=== PATIENT | female | born 1970 | race Caucasian/White ===

== ENCOUNTER 2022-12-31 19:33 | Emergency (ER) | payer OTHER, MEDICAID, SELFPAY ==
[2022-12-31 19:37] VITALS: BP 120/79; PULSE 94; RESP 16; TEMP 36.9; O2SAT 95
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
--- NOTE | 2022-12-31 20:00 | DI.RAD_ITS ---
Exam(s) XR TOE LT GREAT EXAM: XR TOE LT GREAT CLINICAL HISTORY: pain post injury 12/22. TECHNIQUE: 2D digital imaging was performed. Three views. COMPARISON: No exams were available for comparison FINDINGS: BONES: Nondisplaced fracture noted at the medial corner the distal phalanx of the great toe. It inv olves a small portion of the articular surface which is not significantly . No additional f ractures. No bony destructive lesion is seen. JOINTS: No dislocation present. SOFT TISSUE: Normal. IMPRESSION: Fracture at the base of the distal phalanx of the great toe. DATA REPOSITORY: RADIATION DOSE DELIVERED:
[2022-12-31] MEDS: Acetaminophen 325 MG TAB 650 MG PO (20:32)
--- NOTE | 2022-12-31 21:29 | DI.VRAD_ITS ---
PROCEDURE INFORMATION: Exam: XR Left Toe(s) Exam date and time: 12/31/2022 8:54 PM Age: 52 years old Clinical indication: Injury or trauma; Other: Toe caught in dog leash; Blunt trauma; Toes; Left; Injury date: 12/22/22; Injury details: Pain S/P injury great toe TECHNIQUE: Imaging protocol: Radiologic exam of the left toes. Views: Minimum 2 views. COMPARISON: No relevant prior studies available. FINDINGS: Bones/joints: There is a basal corner fracture of the left great toe distal phalanx. This is a fracture of the lateral basal corner. The fragment measuring 3 x 2 mm is distracted 1 mm. Soft tissues: Soft tissue swelling over the lateral foot. No gas or foreign body. IMPRESSION: 1. Fractured left great toe distal phalanx medial base. A small corner fragment of 3 x 2 mm is distracted 1 mm. 2. Soft tissue swelling. No gas or foreign body. Dictated and Authenticated by: Adalid Hutson MD. Ordering:REY Apodaca MD
--- NOTE | 2022-12-31 22:01 | NUR.NOTE ---
Referral faxed to [facility] Podiatry for follow up of fractured great toe week of 01/01/23.Nursing Note:
[2022-12-31 22:18] VITALS: BP 124/78; PULSE 90; RESP 16; O2SAT 96
--- NOTE | 2023-01-01 13:39 | NUR.NOTE ---
Accessed pt chart to call her and let her know that her prescription was here for pickle sorter. She has lost her keys, I did not find any in the ED and [employer] did not have any in their possession. Nursing Note:
== END 2022-12-31 21:58 | disposition home or self-care (01) ==
PROVIDERS: Emergency Provider Emergency Medicine
DX: S92.402A Displaced unspecified fracture of left great toe, initial encounter for closed fracture (principal); X58.XXXA Exposure to other specified factors, initial encounter
CPT/HCPCS: 99283; 73660; 99284

== ENCOUNTER 2023-01-05 11:56 | Emergency (ER) | payer OTHER, MEDICAID, SELFPAY ==
[2023-01-05 12:10] VITALS: BP 102/65; PULSE 79; RESP 16; TEMP 37.3; O2SAT 96
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
[2023-01-05 13:51] LABS: Bilirubin Negative (Negative); Blood Negative (Negative); Clarity Sl Cloudy (Clear); Glucose Negative (Negative); Ketones Negative (Negative); Leukocyte Esterase Trace (Negative); Nitrite Positive (Negative); Specific Gravity 1.015 (1.005-1.025); Urobilinogen 0.2 mg/dL (Up to 0.2); pH 6.5 (5-8)
[2023-01-05 13:57] LABS: Bacteria Many HPF (Negative); C & S Indicated? Yes; Casts Negative LPF (Negative); Crystals Negative HPF (Negative); Epithelial Cells Negative HPF (Negative); Mucus Negative (Negative); RBC 0-2 HPF (0-2)
[2023-01-05 14:44] LABS: Abs Immature Grans 0.02 10^3/uL (0.0-0.06); Absolute Basophil Count 0.02 10^3/uL (0.0-0.2); Absolute Eosinophil Count 0.06 10^3/uL (0.0-0.7); Absolute Lymphocyte Count 2.22 10^3/uL (1.2-3.4); Absolute Monocyte Count 0.23 10^3/uL (0.1-0.8); Absolute Neutrophil Count 4.23 10^3/uL (1.2-6.7); Basophils % 0.3; Eosinophils % 0.9; HCT 43.8 % (36.0-46.0); HGB 14.6 g/dL (11.2-15.7); Immature Grans % 0.3; Lymphocytes % 32.7; MCHC 33.3 % (32.0-36.0); MCV 84 fL (80-95); MPV 9.3 fL (8.0-11.0); Monocytes % 3.4; Neutrophils % 62.4; Platelet Count 222 10^3/uL (130-400); RBC 5.22 10^6/uL (3.93-5.22); RDW 14.6 % (11.7-14.6); WBC 6.78 10^3/uL (4.4-10.8)
[2023-01-05] MEDS: Doxycycline Hyclate 100 MG CAP PO (14:56)
[2023-01-05] MEDS: cefTRIAXone 1 GM VIAL 0.5 GM IM (14:56)
[2023-01-05 14:58] LABS: ALT 53 U/L (14-59); AST 58 U/L (15-37); Albumin 3.7 g/dL (3.4-5.0); Alkaline Phosphatase 144 U/L (46-116); Bilirubin, Direct 0.2 mg/dL (0.0-0.2); Bilirubin, Total 0.6 mg/dL (0.2-1.0); Total Protein 7.9 g/dL (6.4-8.2)
[2023-01-06 15:39] LABS: Chlamydia Result Negative (Negative); GC Result Negative (Negative)
[2023-01-08 10:00] LABS: Hepatitis B Surface Ag Negative (Negative)
[2023-01-08 10:37] LABS: HIV-1/2 Ag & Ab Screen Negative (Negative)
== END 2023-01-05 15:14 | disposition home or self-care (01) ==
PROVIDERS: Emergency Provider Emergency Medicine
DX: T74.21XA Adult sexual abuse, confirmed, initial encounter (principal); N89.8 Other specified noninflammatory disorders of vagina; N39.0 Urinary tract infection, site not specified; Y07.410 Brother, perpetrator of maltreatment and neglect
CPT/HCPCS: 80076; 86706; 86803; 87077; 87340; 87389; 87491; 87591; 96372; 99283; 81003; 81015; 85025; 86705; 87086; 87186; 87480; 87510; 87660; J0696

== ENCOUNTER 2023-01-18 15:41 | Outpatient (REF) | payer OTHER, MEDICAID, SELFPAY ==
[2023-01-18 15:50] LABS: TSH (W/Ref FT4) 0.07 uIU/mL (0.36-3.74)
[2023-01-18 16:33] LABS: FREE T4 1.18 ng/dL (0.76-1.46)
[2023-01-18 16:53] LABS: Bacteria Rare HPF (Negative); C & S Indicated? C&S Done As Ordered; Casts Negative LPF (Negative); Crystals Negative HPF (Negative); Epithelial Cells Few HPF (Negative); Mucus Negative (Negative); RBC 0-2 HPF (0-2)
== END 2023-01-18 15:42 | disposition home or self-care (01) ==
LOC: LBN 15:41
PROVIDERS: Visit Provider Physician Assistant Medical
DX: R35.0 Frequency of micturition (principal); E03.9 Hypothyroidism, unspecified
CPT/HCPCS: 81015; 84439; 84443; 87086; 87480; 87510; 87660

== ENCOUNTER 2023-02-01 13:25 | Outpatient (REF) | payer OTHER, MEDICAID, SELFPAY | END 2023-02-01 13:26 | disposition home or self-care (01) | LOC: LBN 13:25 | PROVIDERS: Visit Provider Physician Assistant Medical | DX: J02.9 Acute pharyngitis, unspecified (principal) | CPT/HCPCS: 87070 ==